=== PATIENT | male | born 1985 | race Caucasian/White ===

== ENCOUNTER 2016-11-07 14:18 | Emergency (ER) | payer MEDICAID, OTHER ==
[~2016-11-07] VITALS: Ht 175.3 cm; Wt 101.9 kg
[2016-11-07] MEDS ORDERED: ZIPRASIDONE 20 MG INJ IM ONE (15:30)
[2016-11-07 15:55] LABS: HEMATOCRIT 45.1 % (39.2-51.8); HEMOGLOBIN 15.4 g/dL (13.7-18.0); WHITE BLOOD COUNT 13.7 x10^3/uL (3.4-10)
[2016-11-07 16:08] LABS: BLOOD UREA NITROGEN 8 mg/dL (7-18)
[2016-11-07] MEDS ORDERED: POTASSIUM CHLORIDE 20 MEQ TAB.ER.PRT PO ONE (17:00)
== END 2016-11-07 17:41 | disposition left against medical advice (07) ==
LOC: ED 14:58
DX: F15.150 Other stimulant abuse with stimulant-induced psychotic disorder with delusions (principal); F22 Delusional disorders
CPT/HCPCS: 36415; 80048; 85025; 99284